=== PATIENT | male | born 1970 ===

== ENCOUNTER 2022-12-28 12:30 | Inpatient (IN) | payer MEDICARE, MEDICAID ==
[2022-12-28] MEDS ORDERED: MAGNESIUM HYDROXIDE 2,400 MG/30 ML CUP PO PRN (13:30)
[2022-12-28] MEDS ORDERED: MAG HYDROX/AL HYDROX/SIMETH 30 ML CUP PO PRN (13:30)
[2022-12-28] MEDS ORDERED: ACETAMINOPHEN TAB 325 MG TAB PO PRN (13:30)
[2022-12-28] MEDS ORDERED: OLANZapine 10 MG VIAL IM PRN (13:31)
[2022-12-28] MEDS ORDERED: hydrOXYzine pamoate 25 MG CAP PO PRN (13:31)
[2022-12-28] MEDS ORDERED: hydrOXYzine HCL 50 MG/ML 1 ML VIAL IM PRN (13:31)
[2022-12-28] MEDS ORDERED: OLANZapine 5 MG TAB PO PRN (13:31)
[2022-12-28] MEDS: BALSALAZIDE DISODIUM 750 MG CAPSULE PO SCH ×2 (19:14→20:14)
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
[2022-12-29] MEDS: LEVOTHYROXINE 137 MCG TAB PO SCH (08:46)
[2022-12-29] MEDS: BALSALAZIDE DISODIUM 750 MG CAPSULE PO SCH ×3 (08:47→21:10)
[2022-12-29 09:13] LABS: Glucose,Whole Blood 246 mg/dL (70-110)
[2022-12-29] MEDS ORDERED: chlorproMAZINE 25 MG TAB PO PRN ×2 (10:21)
[2022-12-29] MEDS ORDERED: LORazepam 2 MG/ML INJ IM PRN ×2 (10:22)
[2022-12-29] MEDS ORDERED: diphenhydrAMINE 50 MG/ML 1 ML VIAL IM PRN (10:23)
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
[2022-12-29] MEDS: chlorproMAZINE 25 MG TAB PO SCH ×2 (18:23→21:10)
[2022-12-30] MEDS: LEVOTHYROXINE 137 MCG TAB PO SCH (06:14)
[2022-12-30] MEDS: BALSALAZIDE DISODIUM 750 MG CAPSULE PO SCH ×3 (09:01→21:21)
[2022-12-30] MEDS: chlorproMAZINE 25 MG TAB PO SCH ×2 (09:01→21:21)
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
[2022-12-31] MEDS: LEVOTHYROXINE 137 MCG TAB PO SCH (06:58)
[2022-12-31] MEDS: chlorproMAZINE 25 MG TAB PO SCH ×2 (09:34→19:51)
[2022-12-31] MEDS: BALSALAZIDE DISODIUM 750 MG CAPSULE PO SCH ×3 (09:34→19:51)
--- NOTE | 2022-12-31 12:18 | P.PN ---
Subjective Progress Note Date: 12/31/22 Principal diagnosis: Assessment Schizoaffective disorder, bipolar type Developmental disability Patient Name: Franc Barahona Date of : 74 Patient Status: Inpatient Attending Provider: Erick Leger Date: 12/31/22 Psychiatric follow-up by Dr. Law Kemp M.D. Interval History: Patient was seen in his room. The patient vehemently denies a need for medications. Patient remains uninterested and continues to be wanting to sleep Patient was very difficult to arouse and only responded some grunts Patient denies that he is feeling agitated or angry He denies any suicidal or homicidal ideations or plans Mental Status Exam: General Appearance: Patient appears to be stated age is alert, and uncooperative Behavior: Patient decreased psychomotor activity Speech: Patient's speech is soft but appropriate Mood/Affect: Mood is flat Suicidality/Homicidality: Patient denies any suicidal or homicidal ideation Perceptions: Patient denies any visual hallucinations and denies any auditory hallucinations Though content/process: [place]. Memory and concentration: AOX3, grossly intact for the purposes of this session Judgment and insight: Very poor Frustration tolerance and impulse control: Very poor Assessment Schizoaffective disorder, bipolar type Developmental disability Plan: -Patient continues to meet criteria for inpatient psychiatric admission for symptom stabilization and safety. The patient will be petitioned and certified. -Medications: Continue Thorazine 25 mg by mouth twice a day for agitation - patient is refusing medication -When necessary Ativan, Thorazine, and Benadryl for agitation/aggression. -NRT - nicotine patch - on board for discharge planning. Encouraged the patient to participate in alicia. Law Kemp M.D. 12/31/2022 Objective - Vital Signs Vital signs: Vital Signs Temp 98.6 F 12/30/22 05:00 Pulse 96 12/31/22 08:12 Resp 19 12/30/22 05:00 BP 120/81 12/31/22 08:12 Pulse Ox 96 12/30/22 05:00 FiO2
[2023-01-01] MEDS: LEVOTHYROXINE 137 MCG TAB PO SCH (06:24)
[2023-01-01] MEDS: chlorproMAZINE 25 MG TAB PO SCH ×2 (08:45→20:29)
[2023-01-01] MEDS: BALSALAZIDE DISODIUM 750 MG CAPSULE PO SCH ×3 (08:45→20:29)
--- NOTE | 2023-01-01 09:31 | P.PN ---
Subjective Progress Note Date: 01/01/23 Principal diagnosis: Assessment Schizoaffective disorder, bipolar type Developmental disability Patient Name: Franc Barahona Date of : 74 Patient Status: Inpatient Attending Provider: Erick Leger Date: 01/01/23 Psychiatric follow-up by Dr. Law Kemp M.D. Interval History: The patient was seen in the hallway Patient started to walk with folded hands and a jimenez posture Patient continues to ramble about how his time for his oral intake has been change and that he does not suit his constitution Patient makes very poor eye contact and remains preoccupied with his situation with food intake Comes across as very concrete and self absorbed Mental Status Exam: General Appearance: Patient appears to be stated age is alert, and uncooperative Behavior: Preoccupied with perseveration Speech: Patient's speech is soft but appropriate Mood/Affect: Mood is flat Suicidality/Homicidality: Patient denies any suicidal or homicidal ideation Perceptions: Patient denies any visual hallucinations and denies any auditory hallucinations Though content/process: [place]. Memory and concentration: AOX3, grossly intact for the purposes of this session Judgment and insight: Very poor Frustration tolerance and impulse control: Very poor Assessment Schizoaffective disorder, bipolar type Developmental disability Plan: -Patient continues to meet criteria for inpatient psychiatric admission for symptom stabilization and safety. The patient will be petitioned and certified. -Medications: Continue Thorazine 25 mg by mouth twice a day for agitation - patient is refusing medication -When necessary Ativan, Thorazine, and Benadryl for agitation/aggression. -NRT - nicotine patch - on board for discharge planning. Encouraged the patient to participate in milieu. Law Kemp M.D. 01/01/2023 Objective - Vital Signs Vital signs: Vital Signs Temp 96.6 F L 01/01/23 08:12 Pulse 72 01/01/23 08:12 Resp 18 01/01/23 08:12 BP 137/73 01/01/23 08:12 Pulse Ox 96 01/01/23 08:12 FiO2
[2023-01-02] MEDS: LEVOTHYROXINE 137 MCG TAB PO SCH (06:24)
[2023-01-02] MEDS: BALSALAZIDE DISODIUM 750 MG CAPSULE PO SCH ×3 (08:20→21:28)
[2023-01-02] MEDS: chlorproMAZINE 25 MG TAB PO SCH ×2 (08:20→21:29)
--- NOTE | 2023-01-02 11:57 | P.PN ---
Progress Note - Text Progress Note Date: 01/02/23 Interval History: Patient was seen watching TV in the lounge and was directable and agreeable to speak with hand sign writer in the unge. And reports that he feels like his appetite is improving and his tolerance of the food is getting better. He continues to be fixated on his medical issues and his diet. He is however denying any suicidal or homicidal ideation, intention, and/or plan. He is not reporting any auditory or visual hallucinations. He does express that he is very upset with his guardian because he wants to have more control of his money. He continues to refuse any medications to address agitation and his mental health. Mental Status Exam: General Appearance: Patient appears to be stated age is alert, and cooperative however difficult to direct. He is wearing women's glasses. Behavior: Patient is calmly seated without any agitated behavior. Speech: Patient's speech is fluent and nonpressured. Repetitive. Loud in volume. Mood/Affect: Mood is improving mildly, affect is irritable. Childlike. Suicidality/Homicidality: Patient denies any current suicidal or homicidal ideation. Perceptions: Patient denies any visual hallucinations and denies any auditory hallucinations Though content/process: [place]. Memory and concentration: AOX3, grossly intact for the purposes of this session Judgment and insight: Poor Vital Signs Temp 96.6 F L 01/01/23 08:12 Pulse 72 01/01/23 08:12 Resp 18 01/01/23 08:12 BP 137/73 01/01/23 08:12 Pulse Ox 96 01/01/23 08:12 FiO2 Intake & Output 01/01/23 01/02/23 01/02/23 18:59 06:59 18:59 Weight 72.2 kg Assessment Schizoaffective disorder, bipolar type Developmental delay Plan: -Patient continues to meet criteria for inpatient psychiatric admission for symptom stabilization and safety. Patient is scheduled for court tomorrow. -Medications: Patient continues to refuse ordered psychiatric medications. Continue Thorazine 25 mg by mouth 3 times a day for psychosis and agitation. -When necessary Ativan, Thorazine, and Benadryl for agitation/aggression. -NRT - nicotine patch -SW on board for discharge planning. Encouraged the patient to participate in milieu.
[2023-01-03] MEDS: LEVOTHYROXINE 137 MCG TAB PO SCH (06:07)
[2023-01-03] MEDS: chlorproMAZINE 25 MG TAB PO SCH (09:09)
[2023-01-03] MEDS: BALSALAZIDE DISODIUM 750 MG CAPSULE PO SCH ×3 (09:09→20:35)
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
[2023-01-03] MEDS: haloperidoL 0.5 MG TAB PO SCH (20:35)
[2023-01-04] MEDS: LEVOTHYROXINE 137 MCG TAB PO SCH (06:00)
[2023-01-04] MEDS ORDERED: chlorproMAZINE 25 MG/ML 2 ML AMP IM STA (09:05)
[2023-01-04] MEDS: SERTRALINE 50 MG TAB PO SCH (09:06)
[2023-01-04] MEDS: haloperidoL 0.5 MG TAB PO SCH ×2 (09:06→22:28)
[2023-01-04] MEDS: BALSALAZIDE DISODIUM 750 MG CAPSULE PO SCH ×3 (09:06→22:29)
--- NOTE | 2023-01-04 10:02 | P.MHFACE ---
Face to Face Restrain/Seclus - Evaluation Patient's Immediate Situation: Endangers others' safety, Endangers staff safety, Violent behavior Patient's Reaction to the Intervention: Uncooperative, Angry, Fearful, Belligerent, Aggressive, Combative Patient's Medical & Behavioral Condition: Agitated, Other (see comment) (religiously preoccupied) Need to Continue or Terminate Restraint or Seclusion: Continue Face to Face Eval of Restraint Date: 01/04/23 Face to Face Eval of Restraint Time: 09:00
[2023-01-04] MEDS ORDERED: flUPHENAZine 2.5 MG/ML (MDV) 10 ML VIAL IM PRN (11:31)
[2023-01-04] MEDS ORDERED: chlorproMAZINE 25 MG/ML 2 ML AMP IM PRN (11:31)
--- NOTE | 2023-01-04 11:33 | P.PN ---
Progress Note - Text Progress Note Date: 01/04/23 Interval History: Patient was seen in the quiet room in four point restraints. The patient was increasingly agitated this morning, threw his water, and started flipping over furniture. He was constantly yelling and was not able to be verbally de- escalated. A "Mr yi" code was called. The patient was then put in 4 point restraints in the quiet room. The patient expressed that everyone was saying "devil talk" that made him agitated. He was constantly yelling for God to smite all the staff. The patient refused to engage in appropriate conversation and kept yelling that he is agitated and he will always be agitated because "that is how my brain is." He continues to refuse medication. He was informed he is court ordered and that we will administer injections if he refuses medications. Mental Status Exam: General Appearance: Patient appears to be stated age is alert, is agitated and uncooperative. Behavior: Patient is in restraints. After administration of thorazine and ativan, he becomes more calm. Speech: Patient's speech is pressured. Repetitive. Loud in volume. Mood/Affect: Mood is "Im agitated!" Affect is congruent and child like. Suicidality/Homicidality: Unable to assess Perceptions:Unable to assess Though content/process: [place]. Memory and concentration: Poor Judgment and insight: Poor Vital Signs Temp 97.7 F 01/04/23 07:00 Pulse 136 H 01/04/23 09:20 Resp 28 H 01/04/23 09:20 BP 139/69 01/04/23 09:20 Pulse Ox 99 01/04/23 09:20 FiO2 Assessment Schizoaffective disorder, bipolar type Developmental delay Plan: -Patient continues to meet criteria for inpatient psychiatric admission for symptom stabilization and safety. Patient is now court ordered. -Medications: Prolixin 3 mg at 7 pm for agitation. Plan to transition to RODRIGUEZ prolixin decanoate. If patient refuses oral prolixin, administer 2.5 mg IM of prolixin. -When necessary Ativan, Thorazine, and Benadryl for agitation/aggression. -NRT - nicotine patch -SW on board for discharge planning. Encouraged the patient to participate in milieu.
[2023-01-05] MEDS: LEVOTHYROXINE 137 MCG TAB PO SCH (09:25)
[2023-01-05] MEDS: haloperidoL 0.5 MG TAB PO SCH ×2 (09:25→21:14)
[2023-01-05] MEDS: SERTRALINE 50 MG TAB PO SCH (09:58)
[2023-01-05] MEDS: BALSALAZIDE DISODIUM 750 MG CAPSULE PO SCH ×3 (09:59→21:14)
--- NOTE | 2023-01-05 11:49 | P.PN ---
Progress Note - Text Progress Note Date: 01/05/23 Interval History: Patient was seen in the common area. The patient is unable to provide any clear history except his fixation on receiving medications for heartburn. He is ruminative and repetitive. He is otherwise refusing his Prolixin however we currently do not have a court order that would allow less administer medications against his will except for when he is agitated.. He reports no overt suicidal or homicidal ideation. He reports that he is just bored and when he is bored he gets very angry. He was advised to control his anger as that would lead up to more restraints in the use of medications in order to sedate him. Mental Status Exam: General Appearance: Patient appears to be stated age is alert, and cooperative. Behavior: Patient displays normal psychomotor activity today. Intermittent eye contact. Speech: Patient's speech is pressured. Repetitive. Loud in volume. Mood/Affect: Mood is "I get angry and I can't help it" Affect is euthymic and child like. Suicidality/Homicidality: Patient denies any current suicidal or homicidal ideation. Perceptions:Unable to assess Though content/process: [place]. Memory and concentration: Poor Judgment and insight: Poor Vital Signs Temp 97.7 F 01/04/23 07:00 Pulse 136 H 01/04/23 09:20 Resp 28 H 01/04/23 09:20 BP 139/69 01/04/23 09:20 Pulse Ox 99 01/04/23 09:20 FiO2 Assessment Schizoaffective disorder, bipolar type Developmental delay Plan: -Patient continues to meet criteria for inpatient psychiatric admission for symptom stabilization and safety. Patient is now court ordered. We're waiting for the addendum to court order. -Medications: Prolixin 3 mg at 7 pm for agitation. Plan to transition to RODRIGUEZ prolixin decanoate. Continue Zoloft 50 mg daily for depression/anxiety If patient refuses oral prolixin, administer 2.5 mg IM of prolixin. -When necessary Ativan, Thorazine, and Benadryl for agitation/aggression. -NRT - nicotine patch -SW on board for discharge planning. Encouraged the patient to participate in milieu.
--- NOTE | 2023-01-06 11:37 | P.PN ---
Progress Note - Text Progress Note Date: 01/06/23 Interval History: Patient was seen in his room. Currently, the patient is unarousable and appears quite somnolent. He did take his Prolixin last night. As per chart review, the patient has had intermittent episodes of agitation and refused ordered medications. The patient has also attended some groups. At this time, it is therapeutic that the patient is sleeping. We will reevaluate tomorrow. Mental Status Exam: General Appearance: Patient appears to be stated age is somnolent and sleeping peacefully. Behavior: Patient is sleeping calmly without any agitated behavior. Speech: Patient's speech could not be assessed at this time Mood/Affect: Mood could not be assessed. Affect is somnolent. Suicidality/Homicidality: Could not be assessed Perceptions:Could not be assessed Though content/process: Could not be assessed Memory and concentration: Could not be assessed Judgment and insight: Poor Vital Signs Temp 97.7 F 01/04/23 07:00 Pulse 136 H 01/04/23 09:20 Resp 28 H 01/04/23 09:20 BP 139/69 01/04/23 09:20 Pulse Ox 99 01/04/23 09:20 FiO2 Assessment Schizoaffective disorder, bipolar type Developmental delay Plan: -Patient continues to meet criteria for inpatient psychiatric admission for symptom stabilization and safety. Patient is now court ordered. We're waiting for the addendum to court order prior to administration of injectable medication. -Encourage patient to have vitals retaken. Last set of vitals were obtained after patient was in restraints. -Medications: Prolixin 3 mg at 7 pm for agitation. Plan to transition to RODRIGUEZ prolixin decanoate. Continue Zoloft 50 mg daily for depression/anxiety -When necessary Ativan, Thorazine, and Benadryl for agitation/aggression. -NRT - nicotine patch -SW on board for discharge planning. Encouraged the patient to participate in rama eng
[2023-01-06] MEDS: LEVOTHYROXINE 137 MCG TAB PO SCH (13:38)
[2023-01-06] MEDS: BALSALAZIDE DISODIUM 750 MG CAPSULE PO SCH ×3 (13:38→20:26)
[2023-01-06] MEDS: SERTRALINE 50 MG TAB PO SCH (13:41)
[2023-01-06] MEDS: haloperidoL 0.5 MG TAB PO SCH (13:46)
[2023-01-07] MEDS: LEVOTHYROXINE 137 MCG TAB PO SCH (05:41)
[2023-01-07] MEDS: BALSALAZIDE DISODIUM 750 MG CAPSULE PO SCH ×3 (09:49→22:02)
[2023-01-07] MEDS: SERTRALINE 50 MG TAB PO SCH (09:49)
--- NOTE | 2023-01-07 14:07 | P.PN ---
Subjective Progress Note Date: 01/07/23 Principal diagnosis: Assessment Schizoaffective disorder, bipolar type Developmental disability Patient Name: Franc Barahona Date of : 74 Patient Status: Inpatient Attending Provider: Erick Leger Date: 01/07/[address] Law Kemp M.D. Interval History: Patient was seen in his room. Currently, the patient is unarousable and appears quite somnolent. However about 15 minutes ago patient was wandering down the hallway and did not seem to have any difficulty and seemed to be intentionally avoiding any conversation As per chart review, the patient has had intermittent episodes of agitation and refused ordered medications. The patient has also attended some groups. At this time, it is therapeutic that the patient is sleeping. We will reevaluate tomorrow. Mental Status Exam: General Appearance: Patient appears to be stated age is somnolent and sleeping peacefully. Behavior: Patient is sleeping calmly without any agitated behavior. Speech: Patient's speech could not be assessed at this time Mood/Affect: Mood could not be assessed. Affect is somnolent. Suicidality/Homicidality: Could not be assessed Perceptions:Could not be assessed Though content/process: Could not be assessed Memory and concentration: Could not be assessed Judgment and insight: Poor Assessment Schizoaffective disorder, bipolar type Developmental delay Plan: -Patient continues to meet criteria for inpatient psychiatric admission for symptom stabilization and safety. Patient is now court ordered. We're waiting for the addendum to court order prior to administration of injectable medication. -Encourage patient to have vitals retaken. Last set of vitals were obtained after patient was in restraints. -Medications: Prolixin 3 mg at 7 pm for agitation. Plan to transition to RODRIGUEZ prolixin decano ate. Continue Zoloft 50 mg daily for depression/anxiety -When necessary Ativan, Thorazine, and Benadryl for agitation/aggression. -NRT - nicotine patch -SW on board for discharge planning. Encouraged the patient to participate in milieu. Law Kemp M.D. 01/07/2023 Objective - Vital Signs Vital signs: Vital Signs Temp 98.3 F 01/07/23 07:11 Pulse 89 01/07/23 07:11 Resp 18 01/07/23 07:11 BP 103/56 01/07/23 07:11 Pulse Ox 98 01/07/23 07:11 FiO2
[2023-01-08] MEDS: SERTRALINE 50 MG TAB PO SCH (08:22)
[2023-01-08] MEDS: BALSALAZIDE DISODIUM 750 MG CAPSULE PO SCH ×3 (08:22→21:07)
[2023-01-08] MEDS: LEVOTHYROXINE 137 MCG TAB PO SCH (09:03)
[2023-01-08] MEDS: BENZTROPINE MESYLATE 1 MG TAB PO SCH ×2 (09:51→21:11)
--- NOTE | 2023-01-08 10:17 | P.PN ---
Subjective Progress Note Date: 01/08/23 Principal diagnosis: Assessment Schizoaffective disorder, bipolar type Developmental disability Patient Name: Franc Barahona Date of : 74 Patient Status: Inpatient Attending Provider: Erick Leger Date: 01/08/[address] Law Kemp M.D. Interval History: Patient was seen in his room. Currently, the patient is unarousable and appears quite somnolent. As per chart review, the patient has had intermittent episodes of agitation and refused ordered medications. The patient has also attended some groups. At this time, it is therapeutic that the patient is sleeping. We will reevaluate tomorrow. Mental Status Exam: General Appearance: Patient appears to be stated age is somnolent and sleeping peacefully. Behavior: Patient is sleeping calmly without any agitated behavior. Speech: Patient's speech could not be assessed at this time Mood/Affect: Mood could not be assessed. Affect is somnolent. Suicidality/Homicidality: Could not be assessed Perceptions:Could not be assessed Though content/process: Could not be assessed Memory and concentration: Could not be assessed Judgment and insight: Poor Assessment Schizoaffective disorder, bipolar type Developmental delay Plan: Staff has also reported that the patient has complaining of some muscle stiffness after his recent antipsychotic long acting administration of Prolixin Will add Cogentin 1 mg twice a day to start within titrated to response -Patient continues to meet criteria for inpatient psychiatric admission for symptom stabilization and safety. Patient is now court ordered. We're waiting for the addendum to court order prior to administration of injectable medication. -Encourage patient to have vitals retaken. Last set of vitals were obtained after patient was in restraints. -Medications: Prolixin 3 mg at 7 pm for agitation. Plan to transition to RODRIGUEZ prolixin decanoate. Continue Zoloft 50 mg daily for depression/anxiety -When necessary Ativan, Thorazine, and Benadryl for agitation/aggression. -NRT - nicotine patch -SW on board for discharge planning. Encouraged the patient to participate in milieu. Law Kemp M.D. 01/08/2023 Objective - Vital Signs Vital signs: Vital Signs Temp 98.6 F 01/08/23 06:46 Pulse 76 01/08/23 06:46 Resp 14 01/08/23 06:46 BP 117/71 01/08/23 06:46 Pulse Ox 98 01/07/23 07:11 FiO2
[2023-01-09] MEDS: LEVOTHYROXINE 137 MCG TAB PO SCH (06:06)
[2023-01-09] MEDS: BALSALAZIDE DISODIUM 750 MG CAPSULE PO SCH ×3 (09:20→20:20)
[2023-01-09] MEDS: BENZTROPINE MESYLATE 1 MG TAB PO SCH (09:21)
[2023-01-09] MEDS: SERTRALINE 50 MG TAB PO SCH (09:25)
--- NOTE | 2023-01-09 11:45 | P.PN ---
Progress Note - Text Progress Note Date: 01/09/23 Interval History: Patient was seen wandering the hallways and was agreeable to speak with credit underwriter in the office. Currently, the patient is not reporting any suicidal or homicidal ideation, intention, and/or plan. He denies any paranoia. He continues to be fixated on his medications stating that the Zoloft is being used for indigestion and that it is the wrong medication. He also reports that he does not have colitis and has Crohn's disease instead. Attempts to educate the patient on his misconceptions appointment with futility as the patient continues to repeat himself. He however has been in adherent with his Prolixin. As per staff review, he is only irritable when approached about medications. No acute agitated behavior noted over the weekend. Mental Status Exam: General Appearance: Patient appears to be stated age is alert, oriented, and cooperative. Behavior: Patient is sitting down calmly without any agitated behavior. Poor eye contact. Speech: Patient's speech is repetitive however less pressured. Mood/Affect: Mood is "okay." Affect is blunted. Suicidality/Homicidality: Patient denies any suicidal or homicidal ideation. Perceptions: No perceptual abnormalities are endorsed. Though content/process: [place]. Simple. Memory and concentration: Grossly intact for the purposes of this session Judgment and insight: At baseline poor due to developmental delay. Vital Signs Temp 97.2 F L 01/09/23 06:45 Pulse 68 01/09/23 06:45 Resp 16 01/09/23 06:45 BP 92/58 01/09/23 06:45 Pulse Ox 98 01/07/23 07:11 FiO2 Intake & Output 01/08/23 01/09/23 01/09/23 18:59 06:59 18:59 Weight 71.4 kg Assessment Schizoaffective disorder, bipolar type Developmental delay Plan: -Patient continues to meet criteria for inpatient psychiatric admission for symptom stabilization and safety. Patient is now court ordered. We are currently awaiting for the addendum to the court order for injectable medication. -Medications: Increase Prolixin to 4 mg at 7 pm for agitation. Plan to transition to RODRIGUEZ prolixin decanoate. Discontinue Zoloft as patient is unlikely to this medication. -When necessary Ativan, Thorazine, and Benadryl for agitation/aggression. -NRT - nicotine patch -SW on board for discharge planning. Encouraged the patient to participate in milieu.
[2023-01-09 13:35] VITALS: BMI 28.8
[2023-01-09] MEDS: BENZTROPINE MESYLATE 0.5 MG TAB PO SCH (20:20)
[2023-01-10] MEDS: LEVOTHYROXINE 137 MCG TAB PO SCH (06:41)
[2023-01-10] MEDS: BALSALAZIDE DISODIUM 750 MG CAPSULE PO SCH ×3 (08:36→21:01)
[2023-01-10] MEDS: BENZTROPINE MESYLATE 0.5 MG TAB PO SCH ×2 (08:36→21:01)
--- NOTE | 2023-01-10 09:39 | P.PN ---
Progress Note - Text Progress Note Date: 01/10/23 Interval History: Patient was seen wandering the hallways and was agreeable to speak with data analyst report writer in the office. Currently, the patient is not reporting any suicidal or homicidal ideation, intention, and/or plan. He denies any paranoia. He continues to remain fixated on his medication for "Crohn's disease and not colitis." However, he remains calm and cooperative. He reports no issues regarding his sleep or his appetite. This provider discussed with the patient the option of transitioning to a long-acting injectable Prolixin however he is not in agreement at this time. He reports no acute issues or concerns. He is uncertain as to where he will go after discharge. Mental Status Exam: General Appearance: Patient appears to be stated age is alert, oriented, and cooperative. Behavior: Patient is sitting down calmly without any agitated behavior. Intermittent eye contact. Speech: Patient's speech is repetitive however less pressured. Mood/Affect: Mood is "okay." Affect is blunted. Suicidality/Homicidality: Patient denies any suicidal or homicidal ideation. Perceptions: No perceptual abnormalities are endorsed. Though content/process: [place]. Simple. Memory and concentration: Grossly intact for the purposes of this session Judgment and insight: At baseline poor due to developmental delay. Vital Signs Temp 97.7 F 01/10/23 06:00 Pulse 70 01/10/23 06:00 Resp 18 01/10/23 06:00 BP 106/65 01/10/23 06:00 Pulse Ox 96 01/10/23 06:00 FiO2 Intake & Output 01/09/23 01/10/23 01/10/23 18:59 06:59 18:59 Weight 71.4 kg Assessment Schizoaffective disorder, bipolar type Developmental delay Plan: -Patient continues to meet criteria for inpatient psychiatric admission for symptom stabilization and safety. Patient is now court ordered. We are currently awaiting for the addendum to the court order for injectable medication. -Medications: Continue Prolixin 4 mg at 7 pm for agitation. Plan to transition to RODRIGUEZ prolixin decanoate. Patient is not agreeable for Prolixin Decanoate at this time. We will need addendum to the court order. -When necessary Ativan, Thorazine, and Benadryl for agitation/aggression. -NRT - nicotine patch -SW on board for discharge planning. Encouraged the patient to participate in milieu.
[2023-01-11] MEDS: LEVOTHYROXINE 137 MCG TAB PO SCH (06:35)
[2023-01-11] MEDS: BALSALAZIDE DISODIUM 750 MG CAPSULE PO SCH ×3 (09:09→20:59)
[2023-01-11] MEDS: BENZTROPINE MESYLATE 0.5 MG TAB PO SCH ×2 (09:19→21:03)
--- NOTE | 2023-01-11 11:09 | P.PN ---
Progress Note - Text Progress Note Date: 01/11/23 Interval History: Patient was seen wandering the hallways and was agreeable to speak with play writer in the office. The patient is denying any suicidal or homicidal ideation, intention, and/or plan. He is future and goal oriented expressing a desire to return to work. He has been adherent with his medications and reports no side effects. He denies any auditory or visual hallucinations. He reports no paranoia or other delusions. The patient did have a witnessed fall in the milieu. He however denies any significant head trauma. He reports no pain or issues. He denies any lightheadedness, dizziness, blurry vision, or any other concerns. He expresses that he fell because he was feeling overwhelmed and depressed as he is frustrated that he has not been able to speak with his medical claims examiner. He is otherwise directable and calm. Mental Status Exam: Grossly unchanged from yesterday General Appearance: Patient appears to be stated age is alert, oriented, and cooperative. Behavior: Patient is sitting down calmly without any agitated behavior. Intermittent eye contact. Speech: Patient's speech is repetitive however less pressured. Mood/Affect: Mood is "okay." Affect is blunted. Suicidality/Homicidality: Patient denies any suicidal or homicidal ideation. Perceptions: No perceptual abnormalities are endorsed. Though content/process: [place]. Simple. Memory and concentration: Grossly intact for the purposes of this session Judgment and insight: At baseline poor due to developmental delay. Vital Signs Temp 97.2 F L 01/11/23 06:48 Pulse 68 01/11/23 06:48 Resp 16 01/11/23 06:48 BP 112/68 01/11/23 06:48 Pulse Ox 96 01/10/23 06:00 FiO2 Assessment Schizoaffective disorder, bipolar type Developmental delay Plan: -Patient continues to meet criteria for inpatient psychiatric admission for symptom stabilization and safety. Patient is now court ordered. We are currently awaiting for the addendum to the court order for injectable medication. -Medications: Continue Prolixin 4 mg at 7 pm for agitation. Plan to transition to RODRIGUEZ prolixin decanoate. Patient is not agreeable for Prolixin Decanoate at this time. We will need addendum to the court order. -When necessary Ativan, Thorazine, and Benadryl for agitation/aggression. -NRT - nicotine patch -SW on board for discharge planning. Encouraged the patient to participate in milieu.
[2023-01-12] MEDS: LEVOTHYROXINE 137 MCG TAB PO SCH (06:56)
[2023-01-12] MEDS: BALSALAZIDE DISODIUM 750 MG CAPSULE PO SCH ×3 (08:28→21:23)
[2023-01-12] MEDS: BENZTROPINE MESYLATE 0.5 MG TAB PO SCH ×2 (08:28→21:39)
--- NOTE | 2023-01-12 09:58 | P.PN ---
Progress Note - Text Progress Note Date: 01/12/23 Interval History: Patient was seen wandering the hallways and was agreeable to speak with video game script writer in the office. The patient reports that he is doing well. He states that he is eager for discharge as he would like to get some fresh air. He is not endorsing any suicidal or homicidal ideation, intention, and/or plan. He is not reporting any auditory or visual hallucinations. He is not reporting any paranoia or other delusions. He has been adherent with his medication and is not reporting any significant side effects. He does not wish to transition to the long-acting injectable at this time. The patient reports apprehension regarding needles as he feels that he already gets enough needles from blood sugar checks. He reports no issues regarding his sleep or his appetite. He states that he is "getting used to taking the medication." Mental Status Exam: Grossly unchanged from yesterday General Appearance: Patient appears to be stated age is alert, oriented, and cooperative. Behavior: Patient is sitting down calmly without any agitated behavior. Intermittent eye contact. Speech: Patient's speech is repetitive however less pressured. Mood/Affect: Mood is "okay." Affect is constricted. Suicidality/Homicidality: Patient denies any suicidal or homicidal ideation. Perceptions: No perceptual abnormalities are endorsed. Though content/process: [place]. Simple. Memory and concentration: Grossly intact for the purposes of this session Judgment and insight: At baseline poor due to developmental delay but overall improved from admission. Vital Signs Temp 97.2 F L 01/11/23 06:48 Pulse 84 01/12/23 08:29 Resp 20 01/12/23 08:29 BP 113/69 01/12/23 08:29 Pulse Ox 96 01/10/23 06:00 FiO2 Assessment Schizoaffective disorder, bipolar type Developmental delay Plan: -Patient continues to meet criteria for inpatient psychiatric admission for symptom stabilization and safety. Patient is now court ordered. We are currently awaiting for the addendum to the court order for injectable me dication. -Medications: Continue Prolixin 4 mg at 7 pm for agitation. Plan to transition to RODRIGUEZ prolixin decanoate. Patient is not agreeable for Prolixin Decanoate at this time. We will need addendum to the court order. Likely discharge tomorrow without long- acting injectable as the patient does not meet criteria for continued inpatient psychiatric hospitalization. -When necessary Ativan, Thorazine, and Benadryl for agitation/aggression. -NRT - nicotine patch -SW on board for discharge planning. Encouraged the patient to participate in milieu.
[2023-01-13 07:08] VITALS: BP 107/56; PULSE 64; RESP 14; TEMP 98.6
[2023-01-13] MEDS: LEVOTHYROXINE 137 MCG TAB PO SCH (07:09)
[2023-01-13] MEDS: BENZTROPINE MESYLATE 0.5 MG TAB PO SCH (09:03)
[2023-01-13] MEDS: BALSALAZIDE DISODIUM 750 MG CAPSULE PO SCH (09:04)
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
== END 2023-01-13 15:10 | disposition home or self-care (01) | DRG 885 ==
LOC: 3MHU 16:25
PROVIDERS: ADMIT Psychiatry & Neurology Psychiatry; ATTEND Psychiatry & Neurology Psychiatry
DX: F25.0 Schizoaffective disorder, bipolar type (principal); R45.851 Suicidal ideations; K50.90 Crohn's disease, unspecified, without complications; E03.9 Hypothyroidism, unspecified; F79 Unspecified intellectual disabilities; R73.03 Prediabetes; Z59.00 Homelessness unspecified; Z78.1 Physical restraint status